=== PATIENT | female | born 1970 | race Hispanic/Latino ===

== ENCOUNTER 2018-09-18 19:28 | Emergency (ER) | payer OTHER ==
[2018-09-18] MEDS ORDERED: ONDANSETRON HCL 4 MG/2 ML VIAL ONE (20:26)
[2018-09-18] MEDS ORDERED: SODIUM CHLORIDE 0.9% 1000ML 1,000 ML IV ONE (20:27)
[2018-09-18] MEDS ORDERED: KETOROLAC TROMETHAMINE 30MG/ML ONE (20:27)
[2018-09-18] MEDS ORDERED: MORPHINE SULFATE 4 MG/1ML SYG ONE (20:27)
[2018-09-18 20:31] LABS: BASOPHILS % (AUTO) 0.8 % (0.0-5.0); EOSINOPHILS % (AUTO) 1.2 % (0.0-8.0); HEMATOCRIT 41.1 % (36-48); LYMPHOCYTES % (AUTO) 28.1 % (21.0-51.0); MEAN CORPUSCULAR HGB CONC 33.6 g/dL (32.0-36.0); MEAN CORPUSCULAR VOLUME 89.1 fL (79-99); MONOCYTES % (AUTO) 10.1 % (3.0-13.0); NEUTROPHILS % (AUTO) 59.8 % (40.0-77.0); NUCLEATED RED BLOOD CELLS 0.1 % (0.0-0.19); PLATELET COUNT (AUTO) 219 K/uL (130-400); RED BLOOD CELL COUNT(AUTO) 4.61 MIL/uL (4.00-5.50); RED CELL DISTRIBUTION WIDTH 13.4 % (11.0-15.5); WHITE BLOOD COUNT (AUTO) 6.3 K/uL (4.8-10.8)
[2018-09-18 20:53] LABS: INR 0.91 (0.85-1.15); PROTHROMBIN TIME 9.6 SEC (9.6-11.6)
[2018-09-18 20:54] LABS: CREATININE 0.8 mg/dL (0.5-1.5); POTASSIUM 3.5 mmol/L (3.5-5.1)
[2018-09-18 20:59] LABS: ALBUMIN 2.9 g/dL (3.5-5.0); BILIRUBIN,DIRECT 0.1 mg/dL (0.0-0.3); BILIRUBIN,TOTAL 0.4 mg/dL (0.2-1.0); TOTAL PROTEIN, SERUM 7.6 g/dL (6.0-8.3)
[2018-09-18 21:16] LABS: BILIRUBIN,URINE Negative (NEGATIVE); COLOR,URINE Yellow (YELLOW); GLUCOSE, URINE (UA) Negative (NEGATIVE); KETONES,URINE Negative (NEGATIVE); LEUKOCYTE ESTERASE ,URINE Trace (NEGATIVE); NITRATE,URINE Negative (NEGATIVE); OCCULT BLOOD,URINE Negative (NEGATIVE); PH,URINE 7.5 (5.0-8.0); PROTEIN,URINE Negative (NEGATIVE)
[2018-09-18 21:17] LABS: APPEARANCE,URINE CLEAR (CLEAR)
[2018-09-18 21:21] LABS: HCG,QUAL RESULT NEGATIVE (NEGATIVE)
[2018-09-18 21:26] LABS: BACTERIA,URINE Rare /HPF (None Seen); RBC,URINE 0-1 /HPF (0-1); WBC,URINE 0-1 /HPF (0-1)
[2018-09-18 21:27] LABS: SQUAMOUS EPITHELIAL CELL,UR Rare /HPF (0-2)
== END 2018-09-18 22:33 | disposition home or self-care (01) ==
LOC: EDH 19:28
DX: K57.32 Diverticulitis of large intestine without perforation or abscess without bleeding (principal); Z90.49 Acquired absence of other specified parts of digestive tract
CPT/HCPCS: 36415; 74176; 80048; 80076; 81001; 81025; 83690; 85025; 85610; 85730; 96374; 96375; 99284; J1885; J2270; J2405; J7030

== ENCOUNTER 2018-11-20 10:11 | Inpatient (IN) | payer SELFPAY ==
[~2018-11-20] VITALS: Ht 162.6 cm; Wt 88.0 kg
[2018-11-20 11:00] LABS: BASOPHILS % (AUTO) 0.7 % (0.0-5.0); EOSINOPHILS % (AUTO) 0.3 % (0.0-8.0); HEMATOCRIT 44.8 % (36-48); MEAN CORPUSCULAR HEMOGLOBIN 30.2 pg (27.0-33.0); MEAN CORPUSCULAR VOLUME 88.8 fL (79-99); MONOCYTES % (AUTO) 7.6 % (3.0-13.0); NEUTROPHILS % (AUTO) 77.4 % (40.0-77.0); PLATELET COUNT (AUTO) 228 K/uL (130-400); RED BLOOD CELL COUNT(AUTO) 5.04 MIL/uL (4.00-5.50); RED CELL DISTRIBUTION WIDTH 13.7 % (11.0-15.5)
[2018-11-20 11:02] LABS: APPEARANCE,URINE Clear (CLEAR); BILIRUBIN,URINE Negative (NEGATIVE); COLOR,URINE Yellow (YELLOW); GLUCOSE, URINE (UA) Negative (NEGATIVE); KETONES,URINE Negative (NEGATIVE); LEUKOCYTE ESTERASE ,URINE Negative (NEGATIVE); NITRATE,URINE Negative (NEGATIVE); OCCULT BLOOD,URINE Negative (NEGATIVE); PH,URINE 6.5 (5.0-8.0); PROTEIN,URINE Negative (NEGATIVE); UROBILINOGEN,URINE 0.2 mg/dL (0.2-1.0)
[2018-11-20 11:09] LABS: POTASSIUM 3.5 mmol/L (3.5-5.1)
[2018-11-20 11:16] LABS: BILIRUBIN,TOTAL 1.2 mg/dL (0.2-1.0); TOTAL PROTEIN, SERUM 7.7 g/dL (6.0-8.3)
[2018-11-20] MEDS ORDERED: ONDANSETRON HCL 4 MG/2 ML VIAL ONE (11:33)
[2018-11-20] MEDS ORDERED: MORPHINE SULFATE 2 MG/ML 1ML SYG ONE (11:34)
[2018-11-20] MEDS ORDERED: LEVOFLOXACIN 500 MG/D5W 100 ML 100 ML ONE (11:34)
[2018-11-20] MEDS ORDERED: METRONIDAZOLE 500MG/100ML BAG 100 ML ONE (11:34)
[2018-11-20] MEDS ORDERED: IOHEXOL-350 75 ML VIAL IV ONE (11:47)
[2018-11-20] MEDS ORDERED: ACETAMINOPHEN 650 MG SUPPOSITORY RC PRN (15:15)
[2018-11-20] MEDS ORDERED: MORPHINE SULFATE 4 MG/1ML SYG ONE (17:38)
[2018-11-20 21:05] VITALS: BP 112/69
[2018-11-20] MEDS: SODIUM CHLORIDE 0.9% 1000ML 1,000 ML IV SCH (21:30)
[2018-11-20] MEDS: METRONIDAZOLE 500MG/100ML BAG 100 ML IV SCH (21:39)
[2018-11-20] MEDS: MORPHINE SULFATE 2 MG/ML 1ML SYG IV PRN (21:39)
[2018-11-20] MEDS: FAMOTIDINE/PF 20 MG/2 ML VIAL IV SCH (21:39)
[2018-11-20 23:17] VITALS: BP 111/68
[2018-11-21] MEDS: SODIUM CHLORIDE 0.9% 1000ML 1,000 ML IV SCH ×3 (01:16→21:08)
[2018-11-21 03:00] VITALS: BP 108/64
[2018-11-21] MEDS: MORPHINE SULFATE 2 MG/ML 1ML SYG IV PRN ×4 (03:04→21:08)
[2018-11-21 05:04] LABS: BASOPHILS % (AUTO) 0.3 % (0.0-5.0); EOSINOPHILS % (AUTO) 1.2 % (0.0-8.0); HEMATOCRIT 40.4 % (36-48); LYMPHOCYTES % (AUTO) 12.4 % (21.0-51.0); MEAN CORPUSCULAR HEMOGLOBIN 30.8 pg (27.0-33.0); MEAN CORPUSCULAR HGB CONC 34.4 g/dL (32.0-36.0); MEAN CORPUSCULAR VOLUME 89.7 fL (79-99); NEUTROPHILS % (AUTO) 77.1 % (40.0-77.0); PLATELET COUNT (AUTO) 167 K/uL (130-400); RED BLOOD CELL COUNT(AUTO) 4.51 MIL/uL (4.00-5.50); RED CELL DISTRIBUTION WIDTH 13.9 % (11.0-15.5); WHITE BLOOD COUNT (AUTO) 8.8 K/uL (4.8-10.8)
[2018-11-21] MEDS: METRONIDAZOLE 500MG/100ML BAG 100 ML IV SCH ×3 (05:14→17:47)
[2018-11-21 05:36] LABS: POTASSIUM 3.9 mmol/L (3.5-5.1)
[2018-11-21 07:30] VITALS: BP 111/71
[2018-11-21] MEDS: FAMOTIDINE/PF 20 MG/2 ML VIAL IV SCH ×2 (08:27→21:08)
[2018-11-21 11:00] VITALS: BP 126/68
[2018-11-21] MEDS ORDERED: LEVOFLOXACIN 500 MG/D5W 100 ML 100 ML IV SCH (11:00)
--- NOTE | 2018-11-21 14:24 | NUR ---
DCP CM met with pt discussed dc plans. Pt is independent, lives at home with son. Denies any equipments/services. Pt feels safe to go back home, still drives and works, arranged own needs. DC plan to home once stable. CM to cont to follow up. Addendum: 11/21/18 at 1425 by MAITE GALICIA LVN CM Amended: Links added.
[2018-11-21 16:00] VITALS: BP 128/69
[2018-11-21 20:00] VITALS: BP 113/61
[2018-11-21] MEDS ORDERED: LEVOFLOXACIN 750 MG/D5W 150 ML 150 ML IV SCH (21:00)
[2018-11-21] MEDS: CEFTAZIDIME PENTAHYDRATE 1 GM/VIAL IVP SCH (21:08)
[2018-11-22 00:08] VITALS: BP 107/64
[2018-11-22] MEDS: METRONIDAZOLE 500MG/100ML BAG 100 ML IV SCH ×4 (00:31→19:52)
[2018-11-22 04:00] VITALS: BP 104/54
[2018-11-22] MEDS: CEFTAZIDIME PENTAHYDRATE 1 GM/VIAL IVP SCH ×3 (05:58→20:43)
[2018-11-22] MEDS: SODIUM CHLORIDE 0.9% 1000ML 1,000 ML IV SCH (05:58)
[2018-11-22 07:51] VITALS: BP 114/76
[2018-11-22] MEDS: FAMOTIDINE/PF 20 MG/2 ML VIAL IV SCH ×2 (07:51→20:43)
[2018-11-22] MEDS: ONDANSETRON HCL 4 MG/2 ML VIAL IVP PRN (07:51)
[2018-11-22] MEDS: MORPHINE SULFATE 2 MG/ML 1ML SYG IV PRN ×3 (08:19→20:43)
[2018-11-22 11:19] VITALS: BP 104/65
[2018-11-22 13:22] LABS: APPEARANCE,URINE Clear (CLEAR); BILIRUBIN,URINE Negative (NEGATIVE); COLOR,URINE Yellow (YELLOW); GLUCOSE, URINE (UA) Negative (NEGATIVE); KETONES,URINE 40 mg/dL (NEGATIVE); LEUKOCYTE ESTERASE ,URINE Trace (NEGATIVE); NITRATE,URINE Negative (NEGATIVE); OCCULT BLOOD,URINE Negative (NEGATIVE); PROTEIN,URINE Negative (NEGATIVE)
[2018-11-22 13:27] LABS: BACTERIA,URINE Rare /HPF (None Seen); RBC,URINE 0-1 /HPF (0-1); SQUAMOUS EPITHELIAL CELL,UR Rare /HPF (0-2); WBC,URINE 0-1 /HPF (0-1)
[2018-11-22 16:05] VITALS: BP 112/62
[2018-11-22 20:00] VITALS: BP 110/83
[2018-11-23] VITALS (7 sets, daily range): BP systolic 102–125; BP diastolic 48–71
[2018-11-23] MEDS: METRONIDAZOLE 500MG/100ML BAG 100 ML IV SCH ×4 (01:22→17:26)
[2018-11-23] MEDS: SODIUM CHLORIDE 0.9% 1000ML 1,000 ML IV SCH ×3 (01:23→12:24)
[2018-11-23 04:48] LABS: BASOPHILS % (AUTO) 0.5 % (0.0-5.0); EOSINOPHILS % (AUTO) 1.7 % (0.0-8.0); HEMATOCRIT 40.8 % (36-48); LYMPHOCYTES % (AUTO) 15.2 % (21.0-51.0); MEAN CORPUSCULAR HEMOGLOBIN 30.5 pg (27.0-33.0); MEAN CORPUSCULAR HGB CONC 34.2 g/dL (32.0-36.0); MEAN CORPUSCULAR VOLUME 89.3 fL (79-99); MONOCYTES % (AUTO) 8.5 % (3.0-13.0); NEUTROPHILS % (AUTO) 74.1 % (40.0-77.0); PLATELET COUNT (AUTO) 189 K/uL (130-400); RED BLOOD CELL COUNT(AUTO) 4.57 MIL/uL (4.00-5.50); RED CELL DISTRIBUTION WIDTH 13.4 % (11.0-15.5); WHITE BLOOD COUNT (AUTO) 8.3 K/uL (4.8-10.8)
[2018-11-23 05:00] LABS: CREATININE 0.9 mg/dL (0.5-1.5); POTASSIUM 3.9 mmol/L (3.5-5.1)
[2018-11-23] MEDS: CEFTAZIDIME PENTAHYDRATE 1 GM/VIAL IVP SCH ×3 (05:19→17:26)
[2018-11-23] MEDS: FAMOTIDINE/PF 20 MG/2 ML VIAL IV SCH ×3 (10:09→23:29)
[2018-11-23] MEDS: MORPHINE SULFATE 2 MG/ML 1ML SYG IV PRN ×2 (11:20→20:18)
--- NOTE | 2018-11-23 15:43 | NUR ---
Pt Update Pt with no known allergy broke in a rash on upper and lower back, and right upper posterior thigh upon assessment, pt has no difficulty breathing, stable VS, Primary physician notified, order for 25mg Benadryl IV stat, order followed, nursing will continue to monitor and follow up.
[2018-11-23] MEDS ORDERED: DiphenhydrAMINE HCL 50 MG/ML VIAL IV SCH ×2 (15:45→23:45)
[2018-11-23] MEDS: ONDANSETRON HCL 4 MG/2 ML VIAL IVP PRN (16:02)
--- NOTE | 2018-11-23 18:53 | NUR ---
Dr. Hayes to see pt tomorrow 11/24/18 before pt resuming on a clear liq diet, primary nurse updated, care endorsed.
[2018-11-23] MEDS ORDERED: DiphenhydrAMINE HCL 50 MG/ML VIAL ONE (23:18)
[2018-11-23] MEDS ORDERED: METHYLPREDNISOLONE SOD SUCC 125MG/2ML VIAL ONE (23:18)
[2018-11-23] MEDS ORDERED: METHYLPREDNISOLONE SOD SUCC 125MG/2ML VIAL IVP SCH (23:45)
[2018-11-23] MEDS ORDERED: FAMOTIDINE/PF 20 MG/2 ML VIAL IV SCH (23:45)
[2018-11-24] MEDS: CEFTAZIDIME PENTAHYDRATE 1 GM/VIAL IVP SCH ×2 (01:06→09:21)
[2018-11-24] MEDS: METRONIDAZOLE 500MG/100ML BAG 100 ML IV SCH ×2 (01:06→06:28)
[2018-11-24 03:15] VITALS: BP 97/56
[2018-11-24 08:18] VITALS: BP 104/50
[2018-11-24] MEDS: FAMOTIDINE/PF 20 MG/2 ML VIAL IV SCH (09:21)
[2018-11-24 11:26] VITALS: BP 119/66
== END 2018-11-24 13:16 | disposition home or self-care (01) | DRG 392 ==
LOC: EDH 10:11 → EDHIP 10:12 → 3BH 21:08
PROVIDERS: ADMIT Internal Medicine; ATTEND Internal Medicine
DX: K57.32 Diverticulitis of large intestine without perforation or abscess without bleeding (principal); E66.9 Obesity, unspecified; K76.0 Fatty (change of) liver, not elsewhere classified; Z83.3 Family history of diabetes mellitus; Z90.49 Acquired absence of other specified parts of digestive tract; Z68.33 Body mass index [BMI] 33.0-33.9, adult
CPT/HCPCS: 36415; 74177; 80048; 80053; 81001; 81003; 85025; 87088; A4218; G0378; J0713; J1200; J1956; J2270; J2405; J2930; J3490; Q9967

== ENCOUNTER 2019-09-03 18:16 | Inpatient (IN) | payer SELFPAY ==
[~2019-09-03] VITALS: Ht 157.5 cm; Wt 93.4 kg
[2019-09-03] MEDS ORDERED: ONDANSETRON HCL 4 MG/2 ML VIAL ONE (18:36)
[2019-09-03] MEDS ORDERED: ZOSYN 3.375GM+NS 50ML 50 ML IV ONE (18:36)
[2019-09-03] MEDS ORDERED: MORPHINE SULFATE 4 MG/1ML SYG ONE (18:36)
[2019-09-03 18:54] LABS: BASOPHILS % (AUTO) 0.3 % (0.0-5.0); EOSINOPHILS % (AUTO) 0.4 % (0.0-8.0); HEMATOCRIT 45.2 % (36-48); LYMPHOCYTES % (AUTO) 13.5 % (21.0-51.0); MEAN CORPUSCULAR HEMOGLOBIN 30.4 pg (27.0-33.0); MEAN CORPUSCULAR HGB CONC 33.8 g/dL (32.0-36.0); MEAN CORPUSCULAR VOLUME 89.9 fL (79-99); MONOCYTES % (AUTO) 6.7 % (3.0-13.0); NEUTROPHILS % (AUTO) 78.8 % (40.0-77.0); PLATELET COUNT (AUTO) 223 K/uL (130-400); RED BLOOD CELL COUNT(AUTO) 5.03 MIL/uL (4.00-5.50); WHITE BLOOD COUNT (AUTO) 11.1 K/uL (4.8-10.8)
[2019-09-03 18:57] LABS: APPEARANCE,URINE Clear (CLEAR); BILIRUBIN,URINE Negative (NEGATIVE); COLOR,URINE Yellow (YELLOW); GLUCOSE, URINE (UA) Negative (NEGATIVE); KETONES,URINE Negative (NEGATIVE); LEUKOCYTE ESTERASE ,URINE Negative (NEGATIVE); NITRATE,URINE Negative (NEGATIVE); OCCULT BLOOD,URINE Negative (NEGATIVE); PH,URINE 5.5 (5.0-8.0); PROTEIN,URINE Negative (NEGATIVE)
[2019-09-03 18:59] LABS: CREATININE 0.9 mg/dL (0.5-1.5); POTASSIUM 3.7 mmol/L (3.5-5.1)
[2019-09-03 19:02] LABS: HCG,QUAL RESULT NEGATIVE (NEGATIVE)
[2019-09-03 19:06] LABS: ALBUMIN 3.7 g/dL (3.5-5.0); BILIRUBIN,TOTAL 1.4 mg/dL (0.2-1.0); TOTAL PROTEIN, SERUM 8.9 g/dL (6.0-8.3)
[2019-09-03] MEDS ORDERED: IOHEXOL-350 75 ML VIAL IV ONE (19:46)
[2019-09-03] MEDS ORDERED: ACETAMINOPHEN 325 MG TAB PO PRN ×2 (21:15)
[2019-09-03] MEDS ORDERED: LACTULOSE 20 GM/30 ML UDCUP PO PRN (21:15)
[2019-09-03 22:02] VITALS: BP 111/67
[2019-09-03] MEDS: MORPHINE SULFATE 2 MG/ML 1ML SYG IV PRN (22:29)
[2019-09-04] MEDS: MORPHINE SULFATE 2 MG/ML 1ML SYG IV PRN (02:27)
[2019-09-04] MEDS: SODIUM CHLORIDE 0.9% 1000ML 1,000 ML IV SCH ×3 (02:30→17:35)
[2019-09-04 03:56] VITALS: BP 102/64
[2019-09-04] MEDS: ZOSYN 3.375GM+NS 50ML 50 ML IV SCH ×3 (05:30→21:00)
[2019-09-04 05:34] LABS: BASOPHILS % (AUTO) 0.3 % (0.0-5.0); EOSINOPHILS % (AUTO) 0.5 % (0.0-8.0); HEMATOCRIT 39.4 % (36-48); LYMPHOCYTES % (AUTO) 20.8 % (21.0-51.0); MEAN CORPUSCULAR HGB CONC 32.5 g/dL (32.0-36.0); MEAN CORPUSCULAR VOLUME 92.3 fL (79-99); NEUTROPHILS % (AUTO) 69.1 % (40.0-77.0); PLATELET COUNT (AUTO) 188 K/uL (130-400); RED BLOOD CELL COUNT(AUTO) 4.27 MIL/uL (4.00-5.50); RED CELL DISTRIBUTION WIDTH 12.4 % (11.0-15.5); WHITE BLOOD COUNT (AUTO) 10.4 K/uL (4.8-10.8)
[2019-09-04 06:09] LABS: CREATININE 0.9 mg/dL (0.5-1.5); POTASSIUM 3.6 mmol/L (3.5-5.1)
[2019-09-04] MEDS ORDERED: MORPHINE SULFATE 4 MG/1ML SYG ONE (06:54)
--- NOTE | 2019-09-04 07:30 | NUR ---
NOTE AAOX3. DENIES PAIN AT THIS TIME. WAS MEDICATED FOR PAIN EARLIER BY DIRECTOR OF MATERIALS NURSE. DENIES N/V. SHE IS ON CLEAR LIQUIDS. ADMITTED WITH DIVERTICULITIS. SHE IS ON ZOSYN IV. STATES THIS IS HER 3RD EPISODE OF THIS.
[2019-09-04 08:11] VITALS: BP 96/44
[2019-09-04] MEDS ORDERED: MORPHINE SULFATE 2 MG/ML 1ML SYG IVP SCH (10:30)
[2019-09-04] MEDS: ENOXAPARIN SODIUM 40 MG/0.4 ML SYRINGE SQ SCH (10:39)
[2019-09-04] MEDS: FAMOTIDINE/PF 20 MG/2 ML VIAL IV SCH ×2 (10:40→21:00)
[2019-09-04] MEDS: MORPHINE SULFATE 4 MG/1ML SYG IV PRN ×2 (10:46→15:20)
[2019-09-04 11:45] VITALS: BP 108/70
[2019-09-04] MEDS ORDERED: ACETAMINOPHEN-CODEINE 300/30MG TAB PO PRN (12:45)
--- NOTE | 2019-09-04 15:00 | NUR ---
NOTE CONTINUES WITH SEVERE PAIN THROUGHOUT THE DAY. DR GUILLEN SAID TO KEEP HER NPO JUST SOME WATER AND ICE CHIPS IF NEEDED. PATIENT MADE AWARE.
[2019-09-04 16:10] VITALS: BP 124/64
--- NOTE | 2019-09-04 16:26 | NUR ---
INITIAL SW met with patient. Patient lives with friend, Taj Mooney. She has no home services or DME. Patient is able to complete ADL's independently and drives. No PCP. When needed, patient goes to [facility]. Pharmacy is [facility] in [place]. DCP is home. Patient has no insurance or benefits. She is a [place] citizen and worked in the . Patient is being assisted by [employer]. She was provided with community resources for post hospitalization follow up. Patient was also given the Good RX card fo rprescriptions. Addendum: 09/04/19 at 1629 by MANN DYSON Amended: Links added.
[2019-09-04 19:38] VITALS: BP 110/69
[2019-09-04 23:43] VITALS: BP 132/82
[2019-09-05] MEDS: SODIUM CHLORIDE 0.9% 1000ML 1,000 ML IV SCH ×3 (03:06→18:02)
[2019-09-05 04:03] VITALS: BP 103/57
[2019-09-05 05:24] LABS: BASOPHILS % (AUTO) 0.3 % (0.0-5.0); LYMPHOCYTES % (AUTO) 25.3 % (21.0-51.0); MEAN CORPUSCULAR HEMOGLOBIN 30.4 pg (27.0-33.0); MEAN CORPUSCULAR HGB CONC 33.2 g/dL (32.0-36.0); MEAN CORPUSCULAR VOLUME 91.6 fL (79-99); MONOCYTES % (AUTO) 8.8 % (3.0-13.0); NEUTROPHILS % (AUTO) 64.2 % (40.0-77.0); PLATELET COUNT (AUTO) 166 K/uL (130-400); RED BLOOD CELL COUNT(AUTO) 4.15 MIL/uL (4.00-5.50); WHITE BLOOD COUNT (AUTO) 6.9 K/uL (4.8-10.8)
[2019-09-05 05:57] LABS: CREATININE 0.9 mg/dL (0.5-1.5); POTASSIUM 3.7 mmol/L (3.5-5.1)
[2019-09-05] MEDS: ZOSYN 3.375GM+NS 50ML 50 ML IV SCH ×3 (06:20→21:19)
[2019-09-05] MEDS: FAMOTIDINE/PF 20 MG/2 ML VIAL IV SCH ×2 (08:12→21:00)
[2019-09-05] MEDS: ENOXAPARIN SODIUM 40 MG/0.4 ML SYRINGE SQ SCH (08:12)
[2019-09-05 08:16] VITALS: BP 108/58
[2019-09-05 11:13] VITALS: BP 104/50
[2019-09-05] MEDS: MORPHINE SULFATE 2 MG/ML 1ML SYG IV PRN (14:25)
[2019-09-05 16:00] VITALS: BP 112/76
[2019-09-05 20:25] VITALS: BP 134/50
[2019-09-05] MEDS ORDERED: TEMAZEPAM 7.5 MG CAPSULE PO ONE (23:00)
[2019-09-06 00:37] VITALS: BP 109/68
[2019-09-06 04:06] VITALS: BP 100/61
[2019-09-06] MEDS: ZOSYN 3.375GM+NS 50ML 50 ML IV SCH (04:47)
[2019-09-06] MEDS: SODIUM CHLORIDE 0.9% 1000ML 1,000 ML IV SCH (04:48)
[2019-09-06 08:00] VITALS: BP 104/59
[2019-09-06] MEDS: FAMOTIDINE/PF 20 MG/2 ML VIAL IV SCH (09:00)
[2019-09-06] MEDS: ENOXAPARIN SODIUM 40 MG/0.4 ML SYRINGE SQ SCH (09:49)
[2019-09-06 12:00] VITALS: BP 126/64
[2019-09-06] MEDS ORDERED: AMOXICILLIN/POTASSIUM CLAV 500-125 TABLET PO SCH (13:00)
[2019-09-06] MEDS ORDERED: AMOX1TAB15 PO (14:30)
[2019-09-06 16:00] VITALS: BP 102/59
--- NOTE | 2019-09-06 18:16 | NUR ---
PATIENT DISCHARGE PATIENT DISCHARGED, IV DISCONTINUED, CATHLON INTACT BLEEDING CONTROLLED, PATIENT TOLERATED WITHOUT INCIDENT. DISCUSSED IMPORTANCE ON FOLLOW UP APPOINTMENT WITH GI ON Monday09/09/19.
== END 2019-09-06 18:20 | disposition home or self-care (01) | DRG 392 ==
LOC: EDH 18:16 → EDHIP 18:17 → 3BH 22:01
PROVIDERS: ADMIT Internal Medicine; ATTEND Internal Medicine
DX: K57.32 Diverticulitis of large intestine without perforation or abscess without bleeding (principal); R79.89 Other specified abnormal findings of blood chemistry; E66.01 Morbid (severe) obesity due to excess calories; K75.9 Inflammatory liver disease, unspecified; K75.81 Nonalcoholic steatohepatitis (NASH); Z68.37 Body mass index [BMI] 37.0-37.9, adult; Z83.3 Family history of diabetes mellitus
CPT/HCPCS: 36415; 74177; 80048; 80053; 81003; 81025; 82550; 83605; 83690; 85025; G0378; J1650; J2270; J2405; J2543; J3490; J7030; Q9967

== ENCOUNTER 2020-03-08 16:44 | Emergency (ER) | payer SELFPAY ==
[~2020-03-08 16:44] MED LIST: AMOX1TAB15 PO
[2020-03-08] MEDS ORDERED: ACETAMINOPHEN EXTRA STRENGTH 500 MG TABLET ONE (17:19)
[2020-03-08 17:21] LABS: BASOPHILS % (AUTO) 0.5 % (0.0-5.0); EOSINOPHILS % (AUTO) 1.6 % (0.0-8.0); HEMATOCRIT 39.8 % (36-48); LYMPHOCYTES % (AUTO) 26.9 % (21.0-51.0); MEAN CORPUSCULAR HEMOGLOBIN 30.8 pg (27.0-33.0); MEAN CORPUSCULAR HGB CONC 33.9 g/dL (32.0-36.0); MEAN CORPUSCULAR VOLUME 90.7 fL (79-99); MONOCYTES % (AUTO) 8.8 % (3.0-13.0); PLATELET COUNT (AUTO) 179 K/uL (130-400); RED BLOOD CELL COUNT(AUTO) 4.39 MIL/uL (4.00-5.50); RED CELL DISTRIBUTION WIDTH 12.6 % (11.0-15.5); WHITE BLOOD COUNT (AUTO) 6.4 K/uL (4.8-10.8)
[2020-03-08 17:28] LABS: CREATININE 0.9 mg/dL (0.5-1.5); POTASSIUM 3.2 mmol/L (3.5-5.1)
[2020-03-08] MEDS ORDERED: CEPHALEXIN 500 MG CAPSULE ONE (17:58)
== END 2020-03-08 18:09 | disposition home or self-care (01) ==
LOC: EDH 16:44
DX: R21 Rash and other nonspecific skin eruption (principal); R73.9 Hyperglycemia, unspecified; Z90.49 Acquired absence of other specified parts of digestive tract
CPT/HCPCS: 36415; 80048; 85025

== ENCOUNTER 2021-03-10 19:16 | Emergency (ER) | payer OTHER ==
[~2021-03-10] VITALS: Ht 162.6 cm; Wt 81.6 kg
[2021-03-10 19:34] VITALS: BP 126/68
[2021-03-10] MEDS ORDERED: ONDANSETRON 4MG INJ IVP ONE (20:00)
[2021-03-10] MEDS ORDERED: ORPHENADRINE CITRATE 30 MG/ML ML IV ONE (20:00)
[2021-03-10] MEDS ORDERED: MORPHINE 4 MG SYG IV ONE (20:00)
[2021-03-10 21:12] LABS: BASOPHILS % (AUTO) 0.4 % (0.0-5.0); EOSINOPHILS % (AUTO) 1.5 % (0.0-8.0); HEMATOCRIT 43.2 % (36-48); LYMPHOCYTES % (AUTO) 21.7 % (21.0-51.0); MEAN CORPUSCULAR HEMOGLOBIN 31.2 pg (27.0-33.0); MEAN CORPUSCULAR HGB CONC 33.1 g/dL (32.0-36.0); MEAN CORPUSCULAR VOLUME 94.1 fL (79-99); MONOCYTES % (AUTO) 7.3 % (3.0-13.0); NEUTROPHILS % (AUTO) 68.9 % (40.0-77.0); PLATELET COUNT (AUTO) 189 K/uL (130-400); RED BLOOD CELL COUNT(AUTO) 4.59 MIL/uL (4.00-5.50); RED CELL DISTRIBUTION WIDTH 12.6 % (11.0-15.5); WHITE BLOOD COUNT (AUTO) 8.3 K/uL (4.8-10.8)
[2021-03-10 21:24] LABS: INR 1.05 (0.85-1.15); PROTHROMBIN TIME 11.4 SEC (9.6-11.6)
[2021-03-10 21:24] LABS: APPEARANCE,URINE Clear (CLEAR); BILIRUBIN,URINE Negative (NEGATIVE); COLOR,URINE Yellow (YELLOW); GLUCOSE, URINE (UA) Negative (NEGATIVE); KETONES,URINE Negative (NEGATIVE); LEUKOCYTE ESTERASE ,URINE Negative (NEGATIVE); NITRATE,URINE Negative (NEGATIVE); OCCULT BLOOD,URINE Negative (NEGATIVE); PH,URINE 6.5 (5.0-8.0); PROTEIN,URINE Negative (NEGATIVE); UROBILINOGEN,URINE 0.2 mg/dL (0.2-1.0)
[2021-03-10 21:25] LABS: PARTIAL THROMBOPLASTIN TIME 24.3 SEC (26.3-35.5)
[2021-03-10] MEDS ORDERED: METH-662 PO (21:50)
[2021-03-10] MEDS ORDERED: NAPR500T6 PO (21:50)
[2021-03-10 22:43] VITALS: BP 122/56
== END 2021-03-10 22:49 | disposition home or self-care (01) ==
LOC: EDH 19:16
DX: S16.1XXA Strain of muscle, fascia and tendon at neck level, initial encounter (principal); S00.03XA Contusion of scalp, initial encounter; Z90.49 Acquired absence of other specified parts of digestive tract; I10 Essential (primary) hypertension; V49.49XA Driver injured in collision with other motor vehicles in traffic accident, initial encounter; Y93.89 Activity, other specified; Y92.89 Other specified places as the place of occurrence of the external cause; Y99.8 Other external cause status
CPT/HCPCS: 36415; 70450; 71045; 72125; 81003; 84484; 85025; 85610; 85730; 93005; 96374; 96375; 99285; J2270; J2360; J2405

== ENCOUNTER 2022-07-05 13:58 | Emergency (ER) | payer OTHER ==
[~2022-07-05] VITALS: Ht 160 cm; Wt 84.8 kg
[~2022-07-05 13:58] MED LIST changes: +METH-662 PO; +NAPR500T6 PO
[2022-07-05] MEDS ORDERED: KETOROLAC 15MG/ML VIAL (15MG/ML) IV ONE (14:30)
[2022-07-05] MEDS ORDERED: ONDANSETRON 4MG INJ IVP ONE (14:30)
[2022-07-05] MEDS ORDERED: ACETAMINOPHEN 500 MG TABLET PO ONE (14:30)
[2022-07-05] MEDS ORDERED: FAMOTIDINE 20MG VIAL IV ONE (14:30)
[2022-07-05] MEDS ORDERED: 0.9%NACL 1000ML 1,000 ML IV ONE (14:30)
[2022-07-05] MEDS ORDERED: MORPHINE 4 MG SYG IVP ONE (14:30)
[2022-07-05 14:38] LABS: BASOPHILS % (AUTO) 0.5 % (0.0-5.0); EOSINOPHILS % (AUTO) 0.3 % (0.0-8.0); HEMATOCRIT 41.7 % (36-48); LYMPHOCYTES % (AUTO) 17.4 % (21.0-51.0); MEAN CORPUSCULAR HEMOGLOBIN 29.9 pg (27.0-33.0); MEAN CORPUSCULAR HGB CONC 34.3 g/dL (32.0-36.0); MEAN CORPUSCULAR VOLUME 87.2 fL (79-99); MONOCYTES % (AUTO) 13.8 % (3.0-13.0); NEUTROPHILS % (AUTO) 67.8 % (40.0-77.0); PLATELET COUNT (AUTO) 189 K/uL (130-400); RED BLOOD CELL COUNT(AUTO) 4.78 MIL/uL (4.00-5.50); WHITE BLOOD COUNT (AUTO) 6.3 K/uL (4.8-10.8)
[2022-07-05 14:41] LABS: APPEARANCE,URINE CLEAR (CLEAR); BILIRUBIN,URINE NEGATIVE (NEGATIVE); COLOR,URINE YELLOW (YELLOW); GLUCOSE, URINE (UA) NEGATIVE (NEGATIVE); KETONES,URINE NEGATIVE (NEGATIVE); LEUKOCYTE ESTERASE ,URINE NEGATIVE Leu/uL (NEGATIVE); NITRATE,URINE NEGATIVE (NEGATIVE); OCCULT BLOOD,URINE NEGATIVE (NEGATIVE); PROTEIN,URINE NEGATIVE (NEGATIVE)
[2022-07-05 14:44] LABS: BACTERIA,URINE RARE /HPF (None Seen); MUCUS,URINE RARE LPF (None Seen); RBC,URINE 0-1 /HPF (0-1); SQUAMOUS EPITHELIAL CELL,UR FEW /HPF (0-2)
[2022-07-05 14:47] LABS: CREATININE 1.1 mg/dL (0.5-1.5); POTASSIUM 3.6 mmol/L (3.5-5.1)
[2022-07-05 14:52] LABS: ALBUMIN 3.2 g/dL (3.5-5.0); TOTAL PROTEIN, SERUM 7.9 g/dL (6.0-8.3)
[2022-07-05 17:41] VITALS: BP 106/52
== END 2022-07-05 18:15 | disposition home or self-care (01) ==
LOC: EDH 13:58
DX: U07.1 COVID-19 (principal); I10 Essential (primary) hypertension; Z90.49 Acquired absence of other specified parts of digestive tract; Z79.899 Other long term (current) drug therapy
CPT/HCPCS: 99285; 74176; 96374; 96375; 71045; 87635; 96361; 84484; 80053; 85025; 87040 ×2; 87804 ×2; 83605; 81001; 36415; 93005; C9803; J3490; J7030; J2405; J2270; J1885

== ENCOUNTER 2022-07-20 08:39 | Emergency (ER) | payer OTHER ==
[~2022-07-20] VITALS: Ht 162.6 cm; Wt 81.6 kg
[2022-07-20 09:14] LABS: BASOPHILS % (AUTO) 0.2 % (0.0-5.0); EOSINOPHILS % (AUTO) 0.4 % (0.0-8.0); HEMATOCRIT 41.6 % (36-48); LYMPHOCYTES % (AUTO) 14.3 % (21.0-51.0); MEAN CORPUSCULAR HEMOGLOBIN 29.8 pg (27.0-33.0); MEAN CORPUSCULAR HGB CONC 33.9 g/dL (32.0-36.0); MEAN CORPUSCULAR VOLUME 87.9 fL (79-99); MONOCYTES % (AUTO) 9.4 % (3.0-13.0); NEUTROPHILS % (AUTO) 75.5 % (40.0-77.0); PLATELET COUNT (AUTO) 185 K/uL (130-400); RED BLOOD CELL COUNT(AUTO) 4.73 MIL/uL (4.00-5.50); RED CELL DISTRIBUTION WIDTH 12.9 % (11.0-15.5); WHITE BLOOD COUNT (AUTO) 9.2 K/uL (4.8-10.8)
[2022-07-20 09:32] LABS: ALBUMIN 3.5 g/dL (3.5-5.0); CREATININE 0.8 mg/dL (0.5-1.5); POTASSIUM 4.1 mmol/L (3.5-5.1); TOTAL PROTEIN, SERUM 8.4 g/dL (6.0-8.3)
[2022-07-20 10:01] LABS: APPEARANCE,URINE CLEAR (CLEAR); BILIRUBIN,URINE NEGATIVE (NEGATIVE); COLOR,URINE YELLOW (YELLOW); GLUCOSE, URINE (UA) NEGATIVE (NEGATIVE); HCG,QUALITATIVE URINE NEGATIVE (NEGATIVE); KETONES,URINE NEGATIVE (NEGATIVE); LEUKOCYTE ESTERASE ,URINE NEGATIVE Leu/uL (NEGATIVE); NITRATE,URINE NEGATIVE (NEGATIVE); OCCULT BLOOD,URINE NEGATIVE (NEGATIVE); PROTEIN,URINE NEGATIVE (NEGATIVE)
[2022-07-20 10:26] LABS: BACTERIA,URINE RARE /HPF (None Seen); MUCUS,URINE RARE LPF (None Seen); SQUAMOUS EPITHELIAL CELL,UR FEW /HPF (0-2); WBC,URINE 0-1 /HPF (0-1)
[2022-07-20] MEDS ORDERED: KETOROLAC 30MG VIAL (30MG/ML) IVP ONE (10:30)
[2022-07-20] MEDS ORDERED: ZOSYN 3.375GM +NS 50ML IV STA (12:59)
[2022-07-20] MEDS ORDERED: CIPR-279 PO (13:02)
[2022-07-20] MEDS ORDERED: METR375C2 PO (13:02)
[2022-07-20] MEDS ORDERED: ACETAMINOPHEN 500 MG TABLET PO STA (13:08)
[2022-07-20] MEDS ORDERED: ONDANSETRON 4MG INJ IVP STA (13:08)
[2022-07-20] MEDS ORDERED: PANTOPRAZOLE 40 MG/VIAL IVP STA (13:08)
[2022-07-20 14:03] VITALS: BP 105/51
== END 2022-07-20 14:04 | disposition home or self-care (01) ==
LOC: EDH 08:39
DX: K57.32 Diverticulitis of large intestine without perforation or abscess without bleeding (principal); I10 Essential (primary) hypertension; Z79.1 Long term (current) use of non-steroidal anti-inflammatories (NSAID); Z90.49 Acquired absence of other specified parts of digestive tract
CPT/HCPCS: 99284; 74176; 96365; 96375; 80053; 83690; 85025; 81001; 81025; 36415; J2405; J1885; J2543; C9113

== ENCOUNTER 2023-11-18 12:13 | Emergency (ER) | payer BC ==
[~2023-11-18] VITALS: Ht 162.6 cm; Wt 81.2 kg
[~2023-11-18 12:13] MED LIST changes: +ACET-3540 PO; -AMOX1TAB15 PO; +AMOX1TAB16 PO; +CETI10TA57 PO; +FERR-82 PO; -METH-662 PO; -NAPR500T6 PO; +SODI1TAB PO; +WHEA236P PO
[2023-11-18] MEDS: ONDANSETRON 4MG INJ IVP ONE (12:33)
[2023-11-18] MEDS: MORPHINE 4 MG SYG IVP ONE (12:35)
[2023-11-18] MEDS: 0.9%NACL 1000ML 1,000 ML IV ONE (12:35)
[2023-11-18 12:47] LABS: BASOPHILS # (AUTO) 0.02 K/uL (0.00-0.20); BASOPHILS % (AUTO) 0.2 % (0.0-5.0); EOSINOPHILS # (AUTO) 0.05 K/uL (0.00-0.70); EOSINOPHILS % (AUTO) 0.6 % (0.0-8.0); HEMATOCRIT 40.1 % (36-48); IMMATURE GRANULOCYTE ABSOLUTE 0.03 K/uL (0-1); LYMPHOCYTES # (AUTO) 1.7 K/uL (1.0-4.8); LYMPHOCYTES % (AUTO) 19.2 % (21.0-51.0); MEAN CORPUSCULAR HGB CONC 34.4 g/dL (32.0-36.0); MEAN CORPUSCULAR VOLUME 87.2 fL (79-99); MONOCYTES # (AUTO) 0.5 K/uL (0.1-1.0); MONOCYTES % (AUTO) 5.8 % (3.0-13.0); NEUTROPHILS # (AUTO) 6.6 K/uL (1.8-7.7); NEUTROPHILS % (AUTO) 73.9 % (40.0-77.0); PLATELET COUNT (AUTO) 176 K/uL (130-400); RED CELL DISTRIBUTION WIDTH 12.9 % (11.0-15.5); WHITE BLOOD COUNT (AUTO) 8.9 K/uL (4.8-10.8)
[2023-11-18 12:54] LABS: CREATININE 0.8 mg/dL (0.5-1.0); POTASSIUM 3.7 mmol/L (3.5-5.1)
[2023-11-18 12:59] LABS: ALBUMIN 3.4 g/dL (3.5-5.0); BILIRUBIN,TOTAL 0.6 mg/dL (0.2-1.0); TOTAL PROTEIN, SERUM 8.7 g/dL (6.0-8.3)
[2023-11-18 13:01] VITALS: BP 127/66; PULSE 89; RESP 18; O2SAT 99
[2023-11-18 13:47] LABS: APPEARANCE,URINE CLEAR (CLEAR); BILIRUBIN,URINE NEGATIVE (NEGATIVE); COLOR,URINE COLORLESS (YELLOW); GLUCOSE, URINE (UA) NEGATIVE (NEGATIVE); KETONES,URINE NEGATIVE (NEGATIVE); LEUKOCYTE ESTERASE ,URINE NEGATIVE Leu/uL (NEGATIVE); NITRATE,URINE NEGATIVE (NEGATIVE); OCCULT BLOOD,URINE NEGATIVE (NEGATIVE); PROTEIN,URINE NEGATIVE (NEGATIVE); UROBILINOGEN,URINE 0.2 mg/dL (0.2-1.0)
[2023-11-18 13:52] LABS: ADD UA MICROSCOPIC NO
[2023-11-18] MEDS ORDERED: IBUP-2077 PO (14:13)
[2023-11-18] MEDS ORDERED: TAMS-1 PO (14:13)
[2023-11-18] MEDS: TAMSULOSIN HCL 0.4 MG CAP.ER.24H PO ONE (14:27)
[2023-11-18] MEDS: KETOROLAC 30MG VIAL (30MG/ML) IVP ONE (14:27)
== END 2023-11-18 16:04 | disposition home or self-care (01) ==
LOC: EDH 12:13
DX: N20.9 Urinary calculus, unspecified (principal); N13.30 Unspecified hydronephrosis; N23 Unspecified renal colic; K57.30 Diverticulosis of large intestine without perforation or abscess without bleeding; Z90.49 Acquired absence of other specified parts of digestive tract; Z79.899 Other long term (current) drug therapy; Z98.890 Other specified postprocedural states
CPT/HCPCS: 99284; 74176; 96374; 96375; 96361; 80053; 83690; 85025; 87040 ×2; 83605; 81003; 36415; 93005; J7030; J2405; J2270; J1885

== ENCOUNTER 2025-01-13 16:52 | Emergency (ER) | payer BC ==
[~2025-01-13] VITALS: Ht 162.6 cm; Wt 77.1 kg
[~2025-01-13 16:52] MED LIST changes: +IBUP-2077 PO; +TAMS-55 PO
[2025-01-13 16:57] VITALS: BP 134/80; PULSE 56; RESP 16; TEMP 98.1
--- NOTE | 2025-01-13 17:13 | ERN ---
ED Note History of Present Illness Stated Complaint: CHEST PAIN/ THROAT BURNING/ HEADACHE/ COUGH Chief Complaint: Cough Time Seen by MD: 17:00 Time Seen by Midlevel: 17:02 Dictation: Ms. Derrick kaplan is a 54-year-old female with history of diverticulosis who presented to the emergency department this evening for evaluation of flu symptoms. She reports four days of fatigue, general weakness, congestion, cough, sore throat, and headache. She states today she feels worse and has developed chest pain. She states she called her PCP, HUSSEIN Choudhary, who instructed her to come to the emergency department. She denies fever, chills, shortness of breath, palpitations, edema, abdominal pain, nausea, vomiting, hematemesis, constipation, diarrhea, melena, hematochezia, dysuria, dizziness, or focal weakness/paresthesia Allergies: Coded Allergies: No Known Allergies (Verified Allergy, Unknown, 11/20/18) Emergency Care STOCK ROLLER: None Home Meds Active Scripts Guaifenesin/Dextromethorphan (Guaifenesin Dm Syrup) 100 Mg-10 Mg/5 Ml Syrup, 5 ML PO TID for cough and congestion for 8 Days, #120 ML 0 Refills Prov:MANI GUAJARDO NP 01/13/25 Ibuprofen (Ibuprofen 800 mg Tab) 800 Mg Tab, 800 MG PO Q8H PRN for fever or pain, #30 TAB 0 Refills Prov:MICHAEL PROTER NP 11/18/23 Tamsulosin HCl (Flomax) 0.4 Mg Cap.er.24h, 0.4 MG PO DAILY, #[address] Prov:MICHAEL PORTER NP 11/18/23 Amoxicillin/Potassium Clav (Amox Tr-K Clv 875-125 mg Tab) 875 Mg-125 Mg Tablet, 1 EACH PO q12 for 7 Days, #14 TAB 0 Refills Prov:LAMIN COPE MD 10/20/23 Reported Medications Cetirizine HCl (Cetirizine HCl) 10 Mg Tablet, 1 TAB PO DAILY 10/18/23 Acetaminophen/Diphenhydramine (Tylenol Pm Exstr 500-25Mg Cplt) 500 Mg-25 Mg Tablet, 1 EACH PO HS, TAB 10/18/23 Sodium Bicarbonate/Citric Acid (Keyanna-Masury Heartburn Tab Eff) 1,650 Mg-1,000 Mg Tablet.eff, 1 EACH PO TID PRN for GI DISTRESS, TAB.EFF 10/18/23 Wheat Dextrin (Benefiber) 3 Gram/3.8 Gram Powder, 236 GM PO DAILY, APPL 10/18/23 Ferrous Sulfate (Iron) 325 Mg (65 Mg Iron) Tablet, 325 MG PO DAILY, TAB 10/18/23 Past Medical History Past Medical History: Diverticulitis, Diverticulosis Surgical History: Cholecystectomy PSYCH History: no pertinent psych hx Social History: Negative History: Not Applicable RN Note Reviewed/Agreed w/PFSH: Yes Review of System Dictation REVIEW OF SYSTEMS: CONSTITUTIONAL: Patient denies fevers, chills, sweats and weight changes. Reports fatigue, general weakness, and body aches EYES: Patient denies any visual symptoms. EARS, NOSE, AND THROAT: No difficulties with hearing. Reports congestion and sore throat. CARDIOVASCULAR: Patient denies palpitations, orthopnea and paroxysmal nocturnal dyspnea. Reported chest pain. RESPIRATORY: Reports painful, congested cough. GI: No nausea, vomiting, diarrhea, constipation, abdominal pain, hematochezia or melena. : No urinary hesitancy or dribbling. No nocturia or urinary frequency. No abnormal urethral discharge. MUSCULOSKELETAL: Reported body aches. NEUROLOGIC: No chronic no seizures. Patient denies numbness, tingling or weakness. Reports headache PSYCHIATRIC: Patient denies problems with mood disturbance. No problems with anxiety. ENDOCRINE: No excessive urination or excessive thirst. DERMATOLOGIC: Patient denies any rashes or skin changes. Initial Vital Sign VS Vital Signs Date Time Temp Pulse Resp B/P (MAP) Pulse Ox O2 Delivery O2 Flow Rate FiO2 01/13/25 16:57 98.1 56 16 134/80 100 Room Air 0 Physical Exam Dictation Vital signs: Reviewed. Afebrile. Constitutional: Ill appearing. Head/Face: Normocephalic, atraumatic. Eyes: Periorbital areas with no swelling, redness, or edema. Lids and lashes are normal. Conjunctival injection is absent. Sclera anicteric. Pupils equal, round, reactive to light. ENT: Pinnas intact and no signs of trauma or erythema. Ear canals clear and no discharge. TMs no erythema. No nasal discharge or bleeding noted. Oropharynx with no exudate, redness, swelling, masses, exudates, or evidence of obstruction. Uvula midline. Mucous membranes moist. Neck: Trachea midline, no masses palpated, and no cervical lymphadenopathy. No swelling. Supple, full range of motion. Speech is clear. Chest/Axilla: No tenderness, no crepitus, no paradoxical movement, no retractions. Cardiovascular: Regular rate, regular rhythm, no murmur, no gallops. Symmetric pulses. No peripheral edema. 12 lead EKG reflects a sinus rhythm without ST elevation. Respiratory: Respirations even and unlabored. Lung sounds clear; no wheezes or rale. Noted congested cough; rhonchi. . Room air spo2 98% Gastrointestinal: Inspection is normal. No distention is appreciated. Bowel sounds are normal. No mass or organomegaly . There is no tenderness. No rebound. No rigidity. No voluntary or involuntary guarding. No Lomax's sign. Neurological: Normal speech, gross motor function intact, gross sensory function intact. No focal weakness/Paresthesia. Musculoskeletal/Extremities: All extremities have full range of motion, no pain or tenderness on palpation. Symmetric pulses. Integumentary: Intact. Skin is normal color, warm and dry. Cap refill less than 2 seconds. Results (Laboratory/Radiology) Laboratory/Radiology Laboratory Tests Test 01/13/25 17:20 Influenza Type A Antigen Negative For Type A Influenza Type B Antigen Negative For Type B SARS-CoV-2, RNA, NAAT NEGATIVE SARS CoV-2 Group A Streptococcus Rapid negative (NEGATIVE) Labs Reviewed?: Yes EKG Comment: EKG Interpretation: Ventricular rate: 54 bpm CA Interval: 136 ms QRS duration: [address] segment elevation or depression. Clinical impression: Sinus bradycardia EKG Reviewed and interpreted by. Dr. Trenton Ruth X-RAY Comment: PATIENT: ANDRES MEJIAS MR#: [id number] : 1970 SEX: F AGE: 54 LOCATION: [facility] ORDER 05 STATUS: REG ER REPORT#: [id number] SERVICE 05 REASON: cough, chest pain, congestion ORDERING PHYSICIAN: MANI GUAJARDO NP PROCEDURE: CXR2VW - CHEST 2VWS PA AND LATERAL CHEST RADIOGRAPH INDICATION: cough, chest pain, congestion COMPARISON: 07/05/2022 FINDINGS: Heart size is normal. The pulmonary vascularity and marcus appear normal. No abnormal pulmonary parenchymal opacity or consolidation identified. No significant pleural effusion noted. No pneumothorax detected. IMPRESSION: No radiographic evidence for any acute cardiopulmonary process. DICTATED BY: DERREK CELESTIN MD DATE: 01/13/25 1800 ELECTRONICALLY SIGNED BY: DERREK CELESTIN MD DATE: 01/13/25 180 ED Course ED Course Orders Procedure Category Date Status Time Covid Rna Naat LAB 01/13/25 Complete 17:00 Rapid (Group A Strep) LAB 01/13/25 Complete 17:00 Influenza Type A & B, LAB 01/13/25 Complete Rapid 17:00 Chest 2vws RAD 01/13/25 Resulted 17:06 12 Lead Ekg Tracing- EKG 01/13/25 Resulted Technical 17:06 Guaifenesin-Codeine PHA 01/13/25 Complete Syrup 5ml (Robitussi 17:30 Ibuprofen 600 Mg PHA 01/13/25 Complete Tablet (Motrin) 17:30 Current Medications Medications (Trade) Dose Ordered Sig/Moy Route PRN Reason Start Time Stop Time Status Last Admin Dose Admin Guaifenesin/ Codeine Phosphate (RobiTUSSin AC 5 ML SYRUP) 10 ml ONCE ONCE PO 01/13/25 17:30 01/13/25 17:31 DC 01/13/25 18:55 Ibuprofen (moTRIN) 600 mg ONCE ONCE PO 01/13/25 17:30 01/13/25 17:31 DC 01/13/25 18:56 Vital Signs Date Time Temp Pulse Resp B/P (MAP) Pulse Ox O2 Delivery O2 Flow Rate FiO2 01/13/25 16:57 98.1 56 16 134/80 100 Room Air 0 Uneventful ED course. Vital signs are stable; afebrile with room air SpO2 100%. Patient received doses ibuprofen as well as Robitussin AC. Twelve lead EKG reflects a sinus bradycardia without ST elevation. Chest x-ray unremarkable with clear lung alfaro. COVID, strep, and influenza are negative. Findings were discussed with patient and all questions were answered. Medical Decision Making MDM MDM: Differential diagnosis: Influenza, COVID, strep, pneumonia, cardiac arrhythmia Rationale: Tests considered and ordered secondary to shared decision making include: Lab, chest x-ray, EKG Previous outside records reviewed: Old ER visits. Risk of complication and/or morbidity or mortality of patient management: None Medications-Per medication reconciliation Need for hospitalization: Patient does not meet criteria for hospitalization. Need for emergency major/minor surgery: No There are no social concerns with this patient. Prescription drug management: Guaifenesin Prescriptions will include symptomatic care Patient's prior external medical records from other ER visits were reviewed by me as indicated. Prior testing and results from previous visits were reviewed. Prior tests were taken into account with medical decision making and resource utilization, independent historian/historians were used to obtain complete medical history. I independently interpreted the test that were performed, results were reviewed by me and considered findings on radiology if ordered. Medical management and examination interpretation discussions were had by me with other qualified healthcare professionals as indicated for the patient's care. DX & DISP Disposition: Discharge Departure Impression: Primary Impression: Viral respiratory illness Additional Impression: Cough Condition: Stable Scripts Guaifenesin/Dextromethorphan (Guaifenesin Dm Syrup) 100 Mg-10 Mg/5 Ml Syrup 5 ML PO TID for cough and congestion for 8 Days, #120 ML 0 Refills Prov: MANI GUAJARDO NP 01/13/25 Additional Instructions: Rest. Isolate at home for next 48 hours. Increase fluid intake; electrolyte drains, Popsicles. Take guaifenesin 3 times daily as needed for cough and congestion. Follow up with your primary care physician later this week. Return to the emergency department for any worsening of symptoms or concerns Referrals: AN CHOUDHARY (PCP) Time of Disposition: 18:40 ATTESTATION BY PHYSICIAN I PERFORMED THE SUBSTANTIVE PORTION OF THE VISIT. I HAVE REVIEWED AND PERSONALLY MADE AND APPROVED THE MANAGEMENT PLAN. MANI GUAJARDO NP Jan 13, 2025 17:13 ERROL RUTH MD Jan 16, 2025 07:32
--- NOTE | 2025-01-13 17:15 | EKG ---
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
[2025-01-13 17:59] LABS: RAPID GROUP A STREP negative (NEGATIVE)
--- NOTE | 2025-01-13 18:03 | HMCIMG ---
PA AND LATERAL CHEST RADIOGRAPH INDICATION: cough, chest pain, congestion COMPARISON: 07/05/2022 FINDINGS: Heart size is normal. The pulmonary vascularity and marcus appear normal. No abnormal pulmonary parenchymal opacity or consolidation identified. No significant pleural effusion noted. No pneumothorax detected. IMPRESSION: No radiographic evidence for any acute cardiopulmonary process.
[2025-01-13 18:04] LABS: SARS-CoV-2, RNA, NAAT NEGATIVE SARS CoV-2 (NEGATIVE)
[2025-01-13 18:22] LABS: INFLUENZA TYPE A Negative For Type A (NEGATIVE); INFLUENZA TYPE B Negative For Type B (NEGATIVE)
[2025-01-13] MEDS ORDERED: GUAI237S60 PO (18:39)
[2025-01-13] MEDS: guaiFENesin-coDEINE 5 ML SYRUP PO ONE (18:55)
[2025-01-13] MEDS: ibuPROFEN 600 MG TABLET PO ONE (18:56)
== END 2025-01-13 18:56 | disposition home or self-care (01) ==
LOC: EDH 16:52
DX: J06.9 Acute upper respiratory infection, unspecified (principal); B97.89 Other viral agents as the cause of diseases classified elsewhere; R05.9 Cough, unspecified; Z90.49 Acquired absence of other specified parts of digestive tract; Z20.822 Contact with and (suspected) exposure to COVID-19
CPT/HCPCS: 71046; 87635; 87804; 87880; 93005; 99284